=== PATIENT | female | born 1960 | race African-American/Black ===

== ENCOUNTER 2017-10-13 07:20 | Emergency (ER) | payer BC | END 2017-10-13 08:05 | disposition home or self-care (01) | LOC: SCSER 07:20 | DX: S16.1XXA Strain of muscle, fascia and tendon at neck level, initial encounter (principal); R51 Headache; Z85.3 Personal history of malignant neoplasm of breast; Z79.82 Long term (current) use of aspirin; X58.XXXA Exposure to other specified factors, initial encounter | CPT/HCPCS: 99283 ==

== ENCOUNTER 2017-11-07 08:48 | Outpatient (CLI) | payer BC | END 2017-11-07 08:49 | disposition home or self-care (01) | LOC: BICMAMMO 08:48 | PROVIDERS: ATTEND Specialist | DX: Z08 Encounter for follow-up examination after completed treatment for malignant neoplasm (principal); Z85.3 Personal history of malignant neoplasm of breast; Z98.890 Other specified postprocedural states | CPT/HCPCS: 77066; G0279 ==

== ENCOUNTER 2017-11-11 11:21 | Emergency (ER) | payer BC ==
[2017-11-11 11:56] LABS: #Basophils 0.1 thou/uL (0.0-0.2); #Eosinphils 0.1 thou/uL (0.0-0.7); #Lymphocytes 1.4 thou/uL (1.20-3.40); #Monocytes 0.3 thou/uL (0.11-0.59); #Neutrophils 2.9 thou/uL (1.40-6.50); %Basophils 2.1 % (0.0-1.0); %Eosinophils 1.3 % (0.0-10.0); %Lymphocytes 29.3 % (21.0-51.0); %Monocytes 6.7 % (0.0-10.0); %Neutrophils 60.7 % (42.0-75.0); Hemoglobin 12.8 g/dL (12.0-16.0); Mean Corpuscular HGB CONC 33.9 g/dL (32.0-36.0); Mean Corpuscular Hemoglobin 28.2 pg (27.0-31.0); Mean Platelet Volume 8.3 fL (7.4-10.4); Platelet Count 145 thou/uL (130-400); RBC Distribution Width 12.8 % (11.5-14.5); Red Blood Cell (RBC) Count 4.55 mill/uL (4.20-5.40); White Blood Cell (WBC) Count 4.8 thou/uL (4.8-10.8)
[2017-11-11 12:15] LABS: ALT (SGPT) 23 U/L (8-55); AST (SGOT) 39 U/L (5-34); Alkaline Phosphatase 137 U/L (40-150); Anion Gap 15 mmol/L (10-20); BUN (Urea Nitrogen) 11 mg/dL (9.8-20.1); Bilirubin, Total 0.5 mg/dL (0.2-1.2); CK (CPK) 253 U/L (29-168); Calc. Creatinine Clearance 0 mL/min (70-130); Calcium 9.5 mg/dL (7.8-10.44); Carbon Dioxide 23 mmol/L (22-29); Chloride 107 mmol/L (98-107); Estimated GFR-MDRD 84; Globulin 3.9 g/dL (2.4-3.5); Glucose 89 mg/dL (70-105); Lipase 17 U/L (8-78); Potassium 3.7 mmol/L (3.5-5.1); Protein, Total 7.9 g/dL (6.0-8.3); Sodium 141 mmol/L (136-145); Troponin I Less than 0.010 ng/mL (< 0.028)
--- NOTE | 2017-11-11 13:42 | RAD ---
PORTABLE CHEST: Date: 11/11/17 HISTORY: Chest pain. Cough. Comparison made to chest film dated 07/01/13. FINDINGS: Lungs are well aerated. Interstitial markings in the left perihilar region appear stable. No focal in filtrate or effusion. Heart and mediastinum unremarkable. Numerous surgical clips in the left axilla and small left breast indicate a prior lumpectomy-type procedure. Osseous structures appear unremarka ble as visualized. IMPRESSION: No acute infiltrate or significant interval change. POS: [facility]
[2017-11-11 15:25] LABS: CKMB 0.9 ng/mL (0-6.6); Troponin I Less than 0.010 ng/mL (< 0.028)
== END 2017-11-11 15:51 | disposition home or self-care (01) ==
LOC: SCSER 11:21
DX: R07.89 Other chest pain (principal); Z79.82 Long term (current) use of aspirin
CPT/HCPCS: 71045; 80053; 82553; 83690; 84484; 85025; 93005

== ENCOUNTER 2017-11-12 10:39 | Outpatient (CLI) | payer BC | END 2017-11-12 10:40 | disposition home or self-care (01) | LOC: BICMAMMO 10:39 | PROVIDERS: ATTEND Specialist | DX: Z08 Encounter for follow-up examination after completed treatment for malignant neoplasm (principal); Z85.3 Personal history of malignant neoplasm of breast ==

== ENCOUNTER 2017-12-05 07:56 | Outpatient (CLI) | payer BC | END 2017-12-05 07:57 | disposition home or self-care (01) | LOC: BICMRI 07:56 | PROVIDERS: ATTEND Specialist | DX: C50.912 Malignant neoplasm of unspecified site of left female breast (principal); R93.8 Abnormal findings on diagnostic imaging of other specified body structures | CPT/HCPCS: C8908 ==

== ENCOUNTER 2017-12-06 09:30 | Outpatient (CLI) | payer BC ==
--- NOTE | 2017-12-06 15:42 | PET ---
PET WITH CT SKULL TO MID THIGH: CLINICAL HISTORY: Left breast cancer. COMPARISON: Reference is made to a prior PET CT exam, 06/24/13. RADIOPHARMACEUTICAL: 11.7 mCi fluorine 18-FDG IV. FINDINGS: There is appropriate biodistribution of radiotracer activity. FINDINGS: There is a spiculated, partially calcified hypermetabolic left breast mass with SUV maximum of approx imately 3.7. There are diffuse lytic hypermetabolic osseous metastases which span from the level of the skull base , throughout the spine, involving ribs bilaterally, prominent, lytic destructive involvement of the l eft scapula and subtle involvement of the right scapula regions, as well as involving the pelvic osse ous structures bilaterally including the bilateral iliac bones, sacrum, and the imaged, proximal left femur. There is marked osseous destruction of the lumbar spine with associated obliteration of vertebral can al contents, limited in assessment on the basis of this exam involving the L3 segment, with multiple additional anterior and posterior spinal column lytic destructive lesions. Hypermetabolic activity w ithin the vertebral canal not excluded with regard to potential spinal metastases. This may be furth er assessed with dedicated pre- and postcontrast spinal MR examinations. SUV of osseous metastases m easures up to 12, which is located at the L5 segment. IMPRESSION: 1. Hypermetabolic spiculated partially calcified left breast mass corresponding to recent MRI breast findings which is consistent with malignancy. 2. Diffuse, multifocal lytic metastatic lesions throughout the osseous structures of the visualized skeletal system. Of note, there are lytic destructive lesions which do involve portions of the verte bral canal with prominent compromise of vertebral canal contents, notably within the lumbar spine, in completely assessed on the basis of this exam. Therefore, clinical correlation for detection of neur ologic compromise should be performed. Given the involvement of the imaged skull base osseous struct ures, the possibility of intracranial metastatic disease is not excluded. These findings may be furt her evaluated with pre- and postcontrast MR imaging of the brain and spine as clinically warranted. The findings were telephoned to patient's physician, Dr. Teresita Hawley, at the time of interpretation, 1420 hours 12/06/17. CODE CR POS: [facility]
== END 2017-12-06 09:31 | disposition home or self-care (01) ==
LOC: PET 09:30
PROVIDERS: ATTEND Specialist
DX: C50.912 Malignant neoplasm of unspecified site of left female breast (principal); C79.51 Secondary malignant neoplasm of bone
CPT/HCPCS: 78815; 80048; 85025; A9552

== ENCOUNTER 2017-12-06 11:13 | Outpatient (CLI) | payer BC ==
[2017-12-06 12:21] LABS: #Eosinphils 0.1 thou/uL (0.0-0.7); #Lymphocytes 1.5 thou/uL (1.20-3.40); #Monocytes 0.3 thou/uL (0.11-0.59); #Neutrophils 3.2 thou/uL (1.40-6.50); %Basophils 0.2 % (0.0-1.0); %Eosinophils 1.4 % (0.0-10.0); %Lymphocytes 29.9 % (21.0-51.0); %Monocytes 5.5 % (0.0-10.0); Hemoglobin 12.9 g/dL (12.0-16.0); Mean Corpuscular HGB CONC 32.4 g/dL (32.0-36.0); Mean Corpuscular Hemoglobin 27.9 pg (27.0-31.0); Mean Platelet Volume 8.3 fL (7.4-10.4); Platelet Count 128 thou/uL (130-400); RBC Distribution Width 13.1 % (11.5-14.5); Red Blood Cell (RBC) Count 4.61 mill/uL (4.20-5.40); White Blood Cell (WBC) Count 5.1 thou/uL (4.8-10.8)
[2017-12-06 12:44] LABS: Anion Gap 11 mmol/L (10-20); BUN (Urea Nitrogen) 11 mg/dL (9.8-20.1); Calc. Creatinine Clearance 0 mL/min (70-130); Calcium 9.8 mg/dL (7.8-10.44); Carbon Dioxide 28 mmol/L (22-29); Chloride 105 mmol/L (98-107); Estimated GFR-MDRD 87; Glucose 90 mg/dL (70-105); Potassium 3.4 mmol/L (3.5-5.1); Sodium 141 mmol/L (136-145)
== END 2017-12-06 11:14 | disposition home or self-care (01) ==
LOC: LABBT 11:13
PROVIDERS: ATTEND Specialist
DX: Z01.812 Encounter for preprocedural laboratory examination (principal); C50.912 Malignant neoplasm of unspecified site of left female breast; Z17.1 Estrogen receptor negative status [ER-]
CPT/HCPCS: 80048; 85025

== ENCOUNTER 2017-12-12 08:57 | Outpatient (CLI) | payer BC ==
--- NOTE | 2017-12-12 12:23 | MRI ---
MRI BRAIN WITH AND WITHOUT CONTRAST: HISTORY: Malignant neoplasm of the breast. Evaluate for metastases. COMPARISON: None. CORRELATION: PET imaging from 12/06/2017. FINDINGS: No hemorrhage on the axial gradient echo sequence. No brain parenchymal mass, mass effect, or midline shift. Brain volume is age appropriate. Cortical silva white matter differentiation is preserved. The ventricles and sulci are patent and symmetric. Minimal white matter hyperintensities due to chronic small vessel ischemic change. Central arterial flow voids are maintained. Absent restricted diffusion. Adequate aeration of the sinuses and mastoid air cells. There is no pathologic enhancement of the brain parenchyma. Normal midline brain parenchymal structures. There is multifocal enhancement involving the calvarium. The largest calvarial lesion is in the left occipital calvarium and measures 2 x 0.7 cm. IMPRESSION: 1. No pathologic enhancement in the brain parenchyma. Absent restricted diffusion. No acute infarc t. 2. Multifocal enhancing masses in the calvarium, compatible with osseous metastases. The largest fo cus is in the left occipital calvarium. POS: [facility]
--- NOTE | 2017-12-12 12:55 | MRI ---
THORACIC SPINE MRI WITH AND WITHOUT CONTRAST: HISTORY: Malignant neoplasm of the breast with associated osseous metastases. COMPARISON: None. TECHNIQUE: Thoracic spine MRI is performed with and without intravenous Gadolinium administration. Multisequent ial, multiplanar imaging is performed. FINDINGS: There is T1 marrow signal hypointensity with associated T2 and STIR hyperintensity involving the T1, T5, T6, T7, T8, T9, T10, T11, and T12 vertebral bodies. There is associated abnormal signal intensit y involving multiple spinous processes, from T3 through T8. Post contrast images demonstrate heterog eneous enhancement. Multifocal osseous metastases is favored. There is abnormal enhancement involvi ng a left pedicle, at T11. No abnormal enhancement or T2 hyperintensity in the thoracic cord. Dependent atelectatic change in the lung parenchyma is noted. The visualized solid organs are grossl y unremarkable. The conus medullaris terminates beyond the T12 level. There is severe loss of vertebral body height with retropulsion at T5. T1-T2: No significant central canal stenosis or foraminal narrowing. T2-T3: No significant central canal stenosis or foraminal narrowing. T3-T4: No significant central canal stenosis or foraminal narrowing. T5 VERTEBRAL BODY: There is moderate central canal stenosis secondary to retropulsion. T5-T6: No significant central canal stenosis or foraminal narrowing. T6-T7: Minimal right paracentral disk bulge. No significant central canal stenosis or foraminal jordan rowing. T7 VERTEBRAL BODY: Minimal retropulsion. No significant central canal stenosis. T7-T8/T8-T9/T9-T10: No significant central canal stenosis or foraminal narrowing. T10-T11: Minimal left and right paracentral disk bulges. No significant central canal stenosis or f oraminal narrowing. T11-T12: No significant central canal stenosis or foraminal narrowing. There is significant posterior element metastatic disease involving the left lamina and spinous proce ss at T4, the spinous process and posterior elements at T6, the posterior elements at T8, and the lef t lamina at T9. IMPRESSION: 1. Multifocal osseous metastases. There is a pathologic fracture with resultant vertebral plana at T5. There is deformity of the thoracic cord at this level with moderate central canal stenosis. No T2 hyperintensity of the cord. 2. No pathologic enhancement of the thoracic cord. No magnetic resonance evidence of an intramedull alisa mass. POS: [facility]
--- NOTE | 2017-12-12 13:48 | MRI ---
LUMBAR SPINE MRI WITH AND WITHOUT CONTRAST: LIMITED SACRAL MRI: HISTORY: Metastatic malignant breast cancer. COMPARISON: None. TECHNIQUE: An MRI of the lumbar spine is performed without intravenous Gadolinium administration. Multisequenti al, multiplanar imaging is performed. FINDINGS: There is heterogeneous T1 marrow signal hypointensity throughout the lumbar spine and sacrum. Multif ocal osseous metastasis is favored, given that there is associated T2 and STIR hyperintensity. Abnor mal signal intensity involves the posterior elements, including the lamina and the spinous processes at multiple levels. There is a pathologic fracture at L3 with moderate loss of vertebral body height and retropulsion. There is no abnormal enhancement of the psoas muscles. There is symmetric signal intensity of the kidneys. The conus medullaris terminates at the mid L1 level. Post contrast images do not demonstrate any intradural, extramedullary, or intramedullary metastatic focus. T12-L1: No high grade central canal stenosis or high grade foraminal narrowing. L1-L2: No significant central canal stenosis or foraminal narrowing. L2-L3: No high grade central canal stenosis. The right neural foramen is patent. Moderate left for aminal narrowing due to bony hypertrophy of the left posterior elements, secondary to osseous metasta ses. Additionally, there is metastatic involvement of the left L3 lamina, which compounds the overal l degree of left foraminal narrowing at L2-L3. L3 VERTEBRAL BODY: Pathologic fracture secondary to extensive metastases. There is retropulsion. T here is moderate central canal stenosis due to retropulsion, as well as marrow expansion, secondary t o infiltrating malignancy of the L3 vertebral body and the associated posterior elements. L3-L4: Mild loss of disk space height. Mild central canal stenosis. Moderate bilateral foraminal n arrowing. L4-L5: Adequate disk hydration. No significant central canal stenosis. The foramina are mildly jordan rowed. L5-S1: No high grade central canal stenosis. The neural foramina are moderately narrowed. SACRAL MRI: There is extensive T2 hyperintensity with associated enhancement involving the entire sa abbi and visualized bony pelvis. The sacral foramina appear to be patent. There is mild narrowing o f the left S2 neural foramen secondary to S2 vertebral body metastases. IMPRESSION: 1. Multiple osseous metastases, as above. 2. Pathologic fracture at L3. There is significant (moderate) stenosis of the central spinal canal at L3 secondary to metastases and compression fracture. 3. There is significant left foraminal narrowing at L2-L3 due to metastatic disease. POS: [facility]
== END 2017-12-12 08:58 | disposition home or self-care (01) ==
LOC: MRI 08:57
PROVIDERS: ATTEND Internal Medicine Hematology & Oncology
DX: C50.112 Malignant neoplasm of central portion of left female breast (principal); C79.51 Secondary malignant neoplasm of bone; M84.58XA Pathological fracture in neoplastic disease, other specified site, initial encounter for fracture; M48.061 Spinal stenosis, lumbar region without neurogenic claudication; M99.83 Other biomechanical lesions of lumbar region; M48.04 Spinal stenosis, thoracic region
CPT/HCPCS: 70553; 72157; 72158

== ENCOUNTER 2017-12-17 12:45 | Day surgery (SDC) | payer BC ==
[2017-12-14 15:39] VITALS: BMI 25.3
[~2017-12-17 12:45] MED LIST: Dexamethasone 20 MG/5 ML VIAL ONE; Ketorolac Tromethamine 30 MG/ML VIAL ONE; Lidocaine 1% PF 5 ML VIAL ONE; Ondansetron HCl/PF 4 MG/2 ML Vial ONE; PROPOFOL 200 MG/20 ML VIAL ONE; ePHEDrine/0.9% NaCl/PF SYRINGE 50 mg/10 ml ONE
[2017-12-17] MEDS ORDERED: CEFAZOLIN/Water 2 GM/20 ML SYRINGE ONE (12:49)
[2017-12-17] MEDS ORDERED: Ketorolac Tromethamine 30 MG/ML VIAL ONE (12:50)
[2017-12-17] MEDS ORDERED: Midazolam HCl 2 mg/2 ml Vial ONE (13:43)
[2017-12-17] MEDS ORDERED: Fentanyl 100 MCG/2 ML VIAL ONE (13:43)
[2017-12-17] MEDS ORDERED: Lidocaine 2% 10 ML INJ ONE (13:55)
[2017-12-17] MEDS ORDERED: Bupivacaine/Epinephrine 0.25% 30 ML VIAL ONE (13:55)
[2017-12-17] MEDS ORDERED: Lidocaine 1% w/Epinephrine 1:100K 30 ML VIAL ONE (13:55)
--- NOTE | 2017-12-17 18:02 | RAD ---
RADIOGRAPH CHEST 1 VIEW: Date: 12/17/17 Time: 1458 hours HISTORY: Status post MediPort placement in 57-year-old female with metastatic breast cancer. COMPARISON: 11/11/17. FINDINGS: There is a new right-sided implantable vascular access port, with its catheter overlying the right cl avicular head, with distal tip overlying the right mediastinum, at the expected location of the mid S VC. There is no pneumothorax. Visualized lung garza are clear. Multiple left axillary surgical clips . Lateral costophrenic angles are sharp. Absence of left breast shadow. IMPRESSION: 1. Interval placement of right-sided implantable vascular access port, without pneumothorax. 2. Status post left mastectomy and left axillary lymph node dissection. DARIUS [] POS: [facility]
--- NOTE | 2017-12-18 09:57 | OP ---
DATE OF PROCEDURE: 12/17/2017 PREOPERATIVE DIAGNOSES: Metastatic breast cancer and recurrent left breast cancer. POSTOPERATIVE DIAGNOSES: Metastatic breast cancer and recurrent left breast cancer. OPERATION PERFORMED: Placement of right subclavian low-profile power compatible MediPort. SURGEON: Kev Yee M.D. ANESTHESIA: Total intravenous anesthesia with local using 0.25% Marcaine with epinephrine. INDICATIONS: The patient is a 57-year-old black female. She has been found to have metastatic breas t cancer involving her spine as well as a recurrent cancer within her left breast. [facility] for MediPort placement for chemotherapy administration. She has had a prior right subclavian MediPort that had been placed and removed. DESCRIPTION OF OPERATION: Informed consent was obtained. The patient was taken to the operating ada m where total intravenous anesthesia was obtained with the patient in supine position. Right pericla vicular area was prepped with ChloraPrep and draped in sterile fashion. Local anesthetic was infiltr ated and a large gauge needle was passed under the clavicle in the subclavian vein. Guidewire was pa ssed through the needle and fluoroscopically confirmed to enter the superior vena cava. Additional l ocal anesthetic was infiltrated and transverse incision was created based on needle insertion site. A subcutaneous pocket was dissected inferiorly. Introducer dilator was passed over the guidewire und er fluoroscopic guidance. The guidewire and dilator were removed, and the catheter was passed throug h the introducer. The tip of the catheter was positioned at the atriocaval junction and the catheter was trimmed to the appropriate length and secured to the locking hub of the MediPort. The port was then placed in the subcutaneous pocket where it was secured to the pectoral fascia with 2 interrupted sutures of 3-0 Prolene. The incision was then closed in layers with 3-0 and 4-0 Monocryl. Addition al local anesthetic was infiltrated. The port was cannulated with a Horan needle and it aspirated bl ood freely and was flushed with heparinized saline. Dermabond was placed externally on the skin inci guero. There were no complications. Blood loss was negligible. The patient tolerated the procedure well and was taken to recovery room in stable condition. FINDINGS: There was some minimal appropriate scar tissue from her prior MediPort. The vascular acce ss in the port placement was performed uneventfully. She still had essentially normal anatomy. Ther e were no complications and essentially no blood loss during the operation. She tolerated the proced ure well and was taken to recovery room in stable condition. Fluoroscopy was utilized throughout the procedure.
== END 2017-12-17 16:37 | disposition home or self-care (01) ==
LOC: SDC 12:45
PROVIDERS: ATTEND Specialist
PROC: 0JH63WZ Insertion of Totally Implantable Vascular Access Device into Chest Subcutaneous Tissue and Fascia, Percutaneous Approach (ICD-10-PCS; principal; 2017-12-17)
DX: C50.912 Malignant neoplasm of unspecified site of left female breast (principal); C79.51 Secondary malignant neoplasm of bone; Z17.1 Estrogen receptor negative status [ER-]; Z79.82 Long term (current) use of aspirin
CPT/HCPCS: 71045; 77014; 77290; 77306; 77332; C1788; J0131; J1100; J1642; J1885; J2001; J2250; J2405; J2704; J3010

== ENCOUNTER 2017-12-18 12:52 | Outpatient (CLI) | payer BC | END 2017-12-18 12:53 | disposition home or self-care (01) | LOC: ULT 12:52 | PROVIDERS: ATTEND Internal Medicine Hematology & Oncology | DX: C50.919 Malignant neoplasm of unspecified site of unspecified female breast (principal); I07.1 Rheumatic tricuspid insufficiency | CPT/HCPCS: 93306 ==

== ENCOUNTER 2018-03-21 09:19 | Outpatient (CLI) | payer BC ==
--- NOTE | 2018-03-21 13:51 | PET ---
PET WITH CT SKULL TO MID THIGH: Reference made to prior exam (PET CT) dated 12/06/17. CLINICAL HISTORY: Breast malignancy with bone metastasis. FINDINGS: The previous, numerous osseous hypermetabolic foci have resolved. Currently, no evidence of hypermeta bolic osseous metastatic disease is demonstrated. No new hypermetabolic mass of the neck, chest, abdomen, or pelvis. There are scattered nonspecific pulmonary parenchymal opacities, some of which demonstrate ground-gla ss appearance and others are linear in morphology. Slight component of pulmonary parenchymal nodulari ty is also present, which is below size threshold for PET resolution and is nonspecific. Numerous veronika stic lesions of the osseous structures by CT appearance are redemonstrated. Lipoma of the right glute us musculature is present. IMPRESSION: 1. Interval resolution of prior hypermetabolic activity with regard to patient's previously diagnose d osseous metastatic disease. The numerous CT evidence blastic lesions remain, although are not hyper metabolic by PET imaging. 2. Nonspecific pulmonary parenchymal opacities are present, some of which demonstrate component of n odularity, below size threshold for PET resolution and incompletely assessed on the basis of attenuat ion correction, nondiagnostic CT imaging. Recommend follow-up contrast enhanced CT thorax for further evaluation. 3. Interval resolution of hypermetabolic activity at site of previous left breast mass. POS: [facility]
== END 2018-03-21 09:20 | disposition home or self-care (01) ==
LOC: PET 09:19
PROVIDERS: ATTEND Internal Medicine Hematology & Oncology
DX: C50.919 Malignant neoplasm of unspecified site of unspecified female breast (principal); C79.51 Secondary malignant neoplasm of bone; N63.20 Unspecified lump in the left breast, unspecified quadrant; R91.8 Other nonspecific abnormal finding of lung field
CPT/HCPCS: 78815; A9552

== ENCOUNTER 2018-06-04 14:31 | Outpatient (CLI) | payer BC | END 2018-06-04 14:32 | disposition home or self-care (01) | LOC: ULT 14:31 | PROVIDERS: ATTEND Internal Medicine Hematology & Oncology | DX: C50.112 Malignant neoplasm of central portion of left female breast (principal); I08.1 Rheumatic disorders of both mitral and tricuspid valves; Z79.899 Other long term (current) drug therapy | CPT/HCPCS: 93306 ==

== ENCOUNTER 2018-07-05 08:39 | Outpatient (CLI) | payer BC ==
--- NOTE | 2018-07-05 15:26 | PET ---
PET WITH CT SKULL TO MID THIGH: COMPARISON: 03/21/18. CLINICAL INDICATION: Breast cancer with bone metastasis. RADIOPHARMACEUTICAL: 10.8 mCi F18-FDG intermixed with 10 mL 0.9% sodium chloride. There is appropriate biodistribution of radiotracer activity. FINDINGS: Since the prior exam, there has been interval development of several hypermetabolic foci involving th e osseous structures of the thoracolumbar spine. Maximum SUV is approximately 3.5, which is located a t the L5 vertebral body. Remote compression deformity of L3 is redemonstrated. There are newly develo ped linear oriented parenchymal densities of the right paramediastinal pulmonary parenchyma which fav or sequelae from radiation pneumonitis. These findings are not hypermetabolic. No new hypermetabolic mass or adenopathy involving the soft tissues of the neck, chest, abdomen, or p alexander. IMPRESSION: Interval development of multiple hypermetabolic foci involving the thoracolumbar spine indicative of interval redevelopment of osseous metastatic disease. POS: [facility]
== END 2018-07-05 08:40 | disposition home or self-care (01) ==
LOC: PET 08:39
PROVIDERS: ATTEND Internal Medicine Hematology & Oncology
DX: C50.919 Malignant neoplasm of unspecified site of unspecified female breast (principal); C79.51 Secondary malignant neoplasm of bone
CPT/HCPCS: 78815; A9552

== ENCOUNTER 2018-08-15 09:13 | Outpatient (CLI) | payer BC ==
--- NOTE | 2018-08-15 12:23 | PET ---
PET WITH CT SKULL TO MID THIGH: CLINICAL INDICATION: Breast cancer with bone metastasis. RADIOPHARMACEUTICAL: 12.1 mCi F18-FDG IV. There is appropriate biodistribution of the radiotracer activity. FINDINGS: Comparing to the prior exam (07/05/[address]), there is redemonstration of multifocal hypermetabolic activity involving the osseous structures of the thoracolumbar spine. The prior maximum SUV, localizi ng to the L5 vertebral body on the prior exam (previously 3.5) is now demonstrated at 5.2, which is a n interval increase. Additional osseous lesions have also increased in SUV since the prior exam. Rede monstration of L3 level compression deformity. Since the prior exam, there has been development of a punctate focus of hypermetabolic activity with SUV of 3 localizing to the posterior aspect of the lef t sacroiliac joint, likely representing a small, interval metastatic lesion. There is also a subtle a kwan of increased metabolic activity within the posterior right sacrum, SUV maximum of 3.3, which may also relate to a small interval osseous metastatic lesion. Redemonstration of bilateral paramediastinal pulmonary parenchymal opacities favoring sequelae from r adiation pneumonitis. Lipomatous lesion of the right hemipelvis is again seen. IMPRESSION: 1. Interval increase in intensity with regard to SUV of multifocal thoracolumbar spine osseous lesio ns. 2. Interval development of small foci of hypermetabolic activity involving the region of the sacrum bilaterally, indicative of interval small osseous metastatic lesions, in light of concomitant finding s. Continued imaging follow-up in this regard may prove useful. POS: [facility]
== END 2018-08-15 09:14 | disposition home or self-care (01) ==
LOC: PET 09:13
PROVIDERS: ATTEND Internal Medicine Hematology & Oncology
DX: C50.919 Malignant neoplasm of unspecified site of unspecified female breast (principal); C79.51 Secondary malignant neoplasm of bone; R93.7 Abnormal findings on diagnostic imaging of other parts of musculoskeletal system
CPT/HCPCS: 78815; A9552

== ENCOUNTER 2018-10-22 11:23 | Outpatient (CLI) | payer BC ==
--- NOTE | 2018-10-22 14:08 | PET ---
PET SCAN WITH CT ATTENUATION CORRECTION: HISTORY: Breast cancer with osseous metastasis. TECHNIQUE: Patient was administered 13 mCi of F18-FDG intravenously. Images obtained from skull base to proximal thighs. COMPARISON: 08/15/18 and 07/05/18. FINDINGS: HEAD/NECK: No abnormal FDG localization. CHEST: No abnormal FDG localization. CT used for attenuation correction demonstrates dependent atelectasis, as well as scar or subsegmental atelectasis in the middle lobe. ABDOMEN/PELVIS: No abnormal FDG localization with regards to the solid organs. CT used for attenuation correction dem onstrates a large, heterogeneous uterus compatible with uterine leiomyomas. There are associated punc jones calcifications. OSSEOUS STRUCTURES: The previously noted hypermetabolic activity involving the thoracic and lumbar spine is no longer mario dent. There are sclerotic foci suggesting treated metastasis. There is a stable compression fracture at the L3 level. No abnormal FDG localization in the sacrum, bony pelvis, or ribs. IMPRESSION: Findings compatible with treated metastasis. Previously noted FDG avidity in the thoracolumbar spine and sacrum have resolved. Areas of sclerosis compatible with treated metastasis. Stable compression f racture at L3. POS: [facility]
== END 2018-10-22 11:24 | disposition home or self-care (01) ==
LOC: PET 11:23
PROVIDERS: ATTEND Internal Medicine Hematology & Oncology
DX: C50.919 Malignant neoplasm of unspecified site of unspecified female breast (principal); C79.51 Secondary malignant neoplasm of bone; M48.56XA Collapsed vertebra, not elsewhere classified, lumbar region, initial encounter for fracture; G95.89 Other specified diseases of spinal cord
CPT/HCPCS: 78815; A9552

== ENCOUNTER 2018-10-24 13:28 | Outpatient (CLI) | payer BC | END 2018-10-24 13:29 | disposition home or self-care (01) | LOC: ULT 13:28 | PROVIDERS: ATTEND Internal Medicine Hematology & Oncology | DX: Z51.11 Encounter for antineoplastic chemotherapy (principal); C50.112 Malignant neoplasm of central portion of left female breast; I08.1 Rheumatic disorders of both mitral and tricuspid valves; Z79.899 Other long term (current) drug therapy | CPT/HCPCS: 93306 ==

== ENCOUNTER 2019-01-31 07:55 | Outpatient (CLI) | payer BC ==
--- NOTE | 2019-01-31 10:02 | PET ---
EXAM: PET CT skull to mid thigh COMPARISON: 10/22/2018 HISTORY: Malignant neoplasm of the left female breast with secondary malignant neoplasm of the bone TECHNIQUE: A PET/CT was performed from the skull to the mid thigh after administration of 11.3 millic uries of F-18 FDG. Evaluation was performed on a [employer] workstation. FINDINGS: NECK: No areas of hypermetabolic activity CHEST: No areas of hypermetabolic activity ABDOMEN/PELVIS: No areas of hypermetabolic activity SKELETON: There are stable sclerotic lesions in the spine which do not demonstrate increased hypermet abolic activity and likely represent treated metastases. There are nonfocal areas of metabolic activity within the lower thoracic spine and in the L4 vertebral body with max SUV value of 2.6. Thes e areas do not have CT correlates. The rest of the bones are unremarkable. CT images used for attenuation correction show a right sided Mediport with its tip in the superior ve na cava. There is an enlarged uterus which may represent uterine fibroids. There is a stable compression fracture of L3. IMPRESSION: Nonspecific nonfocal hypermetabolic activity in the lower thoracic spine and in the L4 ve rtebral body. This could represent marrow reactivation but osseous metastases in these locations are also a possibility.
== END 2019-01-31 07:56 | disposition home or self-care (01) ==
LOC: PET 07:55
PROVIDERS: ATTEND Internal Medicine Hematology & Oncology
DX: C50.912 Malignant neoplasm of unspecified site of left female breast (principal); C79.51 Secondary malignant neoplasm of bone
CPT/HCPCS: 78815; A9552

== ENCOUNTER 2019-02-27 12:26 | Outpatient (CLI) | payer BC | END 2019-02-27 12:27 | disposition home or self-care (01) | LOC: ULT 12:26 | PROVIDERS: ATTEND Internal Medicine Hematology & Oncology | DX: Z51.11 Encounter for antineoplastic chemotherapy (principal); C50.112 Malignant neoplasm of central portion of left female breast; C79.51 Secondary malignant neoplasm of bone; I08.8 Other rheumatic multiple valve diseases; Z79.899 Other long term (current) drug therapy | CPT/HCPCS: 93306 ==

== ENCOUNTER 2019-05-08 08:18 | Outpatient (CLI) | payer BC ==
--- NOTE | 2019-05-08 10:19 | PET ---
PET CT SKULL TO MID THIGH: COMPARISON: 01/31/2019 PET/CT. HISTORY: Left breast cancer. TECHNIQUE: A PET/CT was performed from the skull to the mid thigh after administration of 11.1 millicuries of F- 18 FDG. Evaluation was performed on a [employer] workstation. FINDINGS: NECK: No areas of hypermetabolic activity. CHEST: No areas of hypermetabolic activity. ABDOMEN/PELVIS: No areas of hypermetabolic activity. SKELETON: New small focus of hypermetabolic activity of L1 vertebral body is present, and additionally, hyperme tabolic foci of the posterior, left aspect of the sacrum. These findings demonstrate SUV of 4.5, and 3, respectively. IMPRESSION: New hypermetabolic foci of the skeletal system, involving L1 vertebral body, as well as within the po sterior and left aspect of the sacrum. These findings are concerning for interval development of early, osseous metastases. This should be further interrogated with whole body bone scan. Transcribed Date/Time: 05/08/2019 10:34 AM
--- NOTE | 2019-05-08 12:02 | CT ---
CT Brain W Con: 05/08/2019 12:00 AM CLINICAL HISTORY: Breast cancer. COMPARISON: None. FINDINGS: Hemorrhage: None. Ventricular system: Normal in size and morphology for the patient's age. Cerebral parenchyma: Normal Midline shift: None. Mass: No mass effect. Calvarium: Normal. Visualized Paranasal sinuses: Mild mucosal thickening. IMPRESSION: No CT evidence of intracranial metastatic disease.
== END 2019-05-08 08:19 | disposition home or self-care (01) ==
LOC: PET 08:18
PROVIDERS: ATTEND Internal Medicine Hematology & Oncology
DX: C79.51 Secondary malignant neoplasm of bone (principal); C50.912 Malignant neoplasm of unspecified site of left female breast
CPT/HCPCS: 70470; 78815; A9552

== ENCOUNTER 2019-07-09 14:34 | Outpatient (CLI) | payer BC | END 2019-07-09 14:35 | disposition home or self-care (01) | LOC: ULT 14:34 | PROVIDERS: ATTEND Internal Medicine Hematology & Oncology | DX: Z51.11 Encounter for antineoplastic chemotherapy (principal); C50.112 Malignant neoplasm of central portion of left female breast; C79.51 Secondary malignant neoplasm of bone; I07.1 Rheumatic tricuspid insufficiency | CPT/HCPCS: 93306 ==

== ENCOUNTER 2019-07-28 09:52 | Outpatient (CLI) | payer BC ==
--- NOTE | 2019-07-28 14:38 | NM ---
WHOLE BODY BONE SCAN: HISTORY: Malignant neoplasm of central portion of left female breast. Second a malignant neoplasm of bone RADIOPHARMACEUTICAL: 30 mCi technetium 99m-MDP injected intravenously COMPARISON: None FINDINGS: There scattered degenerative activity in the appendicular skeleton. There are foci of increased uptake in the thoracolumbar spine, sacrum and the right iliac crest, cons istent with osseous metastatic disease. Tracer excretion through the kidneys is within normal limits. IMPRESSION: Findings are consistent with osseous metastatic disease.
== END 2019-07-28 09:53 | disposition home or self-care (01) ==
LOC: NM 09:52
PROVIDERS: ATTEND Internal Medicine Hematology & Oncology
DX: C50.112 Malignant neoplasm of central portion of left female breast (principal); C79.51 Secondary malignant neoplasm of bone
CPT/HCPCS: 78306; A9503

== ENCOUNTER 2019-10-23 10:25 | Outpatient (CLI) | payer BC ==
--- NOTE | 2019-10-23 14:06 | NM ---
NUCLEAR MEDICINE BONE SCAN WHOLE BODY: (Skeletal scintigraphy) DATE: 10/23/2019 HISTORY: 59-year-old female with "malignant neoplasm of central portion of left female breast" secondary malig nant neoplasm of bone. COMPARISON: 07/28/2019. TECHNIQUE: IV injection of technetium 99m-MDP: 30.2 mCi 3 hour delayed whole body skeletal scintigraphy in anterior and posterior views. FINDINGS: Focal levoscoliosis at mid lumbar spine. Heterogeneously increased uptake at several levels in the john mbar spine, including mid, upper, and lower levels. Heterogeneously significantly increased uptake at the left sacral ala. Scattered small regions of increased uptake at the mid and lower thoracic spine. Other than osteoarthrosis symmetrically in the major joints, no foci of asymmetrically focally increa sed uptake that are suspicious for long bone metastases, are visualized in the appendicular skeleton.. No such uptake in the ribs. No interval change overall. IMPRESSION: 1) evidence for osseous metastases in the axial skeleton: Thoracic and lumbar spine, and left sacrum 2) no significant interval change since 07/28/2019
== END 2019-10-23 10:26 | disposition home or self-care (01) ==
LOC: NM 10:25
PROVIDERS: ATTEND Internal Medicine Hematology & Oncology
DX: C50.112 Malignant neoplasm of central portion of left female breast (principal); C79.51 Secondary malignant neoplasm of bone
CPT/HCPCS: 78306; A9503

== ENCOUNTER 2019-10-27 14:43 | Outpatient (CLI) | payer BC | END 2019-10-27 14:44 | disposition home or self-care (01) | LOC: ULT 14:43 | PROVIDERS: ATTEND Internal Medicine Hematology & Oncology | DX: Z51.11 Encounter for antineoplastic chemotherapy (principal); C50.112 Malignant neoplasm of central portion of left female breast; C79.51 Secondary malignant neoplasm of bone; I08.1 Rheumatic disorders of both mitral and tricuspid valves; Z79.899 Other long term (current) drug therapy | CPT/HCPCS: 93306 ==

== ENCOUNTER 2020-02-04 08:59 | Outpatient (CLI) | payer BC ==
--- NOTE | 2020-02-04 10:49 | MRI ---
THORACIC SPINE MRI WITH AND WITHOUT CONTRAST: COMPARISON: 12/12/2017. CORRELATION: Chest, abdomen, and pelvic CT 01/28/2020. HISTORY: Metastatic breast cancer. Severe canal compromise noted on recent CT. FINDINGS: There is abnormal T1 marrow signal intensity at T5, T7, T8, T9, T11, T12 and L1. There is vertebrae p maryjane at T5. There is extensive osseous metastases involving the majority the T11 vertebral body extending into the left pedicle and left posterior elements. There is bony remodeling and convexity i nvolving the T11 vertebral body with extension into the epidural space. There is bony hypertrophy involving the left facet at T11. L1 will be dictated in the lumbar spine radiograph MRI report. There appears to be sclerosis secondary to a previously treated metastatic deposit at T5, T7 and T10 (as demonstrated on CT 01/28/2020). There may be a new or residual component of metastases at T7 and T12. There is appropriate signal intensity of the mediastinum, lung parenchyma and visualized solid organs Conus medullaris terminates at the mid L1 level. The thoracic cord has a overall normal size and signal intensity. No cord expansion, cord malacia or T2 hyperintensity in the thoracic cord. Postcontrast images do not demonstrate any abnormal enhancement within the thoracic cord. No intramedullary lesion. T1-T2 through T4-T5: No significant central canal stenosis. T5 vertebral body: Mild central canal stenosis due to retropulsion secondary to vertebrae plana. T11 vertebral body: There is moderate to severe central canal stenosis secondary to osseous metastase s involving the T11 vertebral body with epidural extension as well as involvement of the left pedicle and facet. The right neural foramen is patent. There is severe left foraminal narrowing at T1 0-T11 and T11-T12 secondary to metastases with resultant bony hypertrophy of the left facet. IMPRESSION: 1. Previously treated T5 metastatic lesion with sclerosis and vertebrae plana. 2. Metastases involving the T7, T9, T11, T12 and L1 vertebral bodies. Lesion T7, T9 appear to been pr eviously treated. There appear to be new lesions at T11, possibly T12. Residual disease at T7 cannot be excluded. 3. There is moderate to severe central canal stenosis secondary to osseous metastases with resultant bony expansion at T11. There is associated severe left neural foraminal narrowing at T10-T11 and T11-T12. Results of the study conveyed to Dr. Hawley via [facility] 02/04/2020 at 10:43 AM. Code CR Transcribed Date/Time: 02/04/2020 11:28 AM
--- NOTE | 2020-02-04 11:20 | MRI ---
LUMBAR SPINE MRI WITH AND WITHOUT CONTRAST: HISTORY: Progression of osseous metastases, specifically at T11 where there is significant central canal steno sis. COMPARISON: 12/12/2017. CORRELATION: Chest abdomen pelvis CT 01/28/2020. FINDINGS: Abnormal T1 marrow signal intensity involving T11, T12, L1, L3, L5, S1 and S2 as well as the left shante ac wing. There is associated heterogeneous enhancement compatible with multifocal osseous metastases. The degree of metastatic involvement has significantly progressed in the lumbar spine. Th e degree of osseous involvement at T12 is new when compared to the previous exam. There is suggestion of treatment at T12 with possible minimal residual metastases. The degree of involvement a t L1 has markedly increased. Currently, the left half of the L1 vertebral body is involved as well as the left pedicle. There is involvement of the right aspect of the L3 vertebral body and right pedi rea. There is marked involvement of the left aspect of S1 and S2. There is narrowing and obliteration of the left neural foramen at S1 and S2 with presumed compression/compromise of the left S1 and S2 nerve roots. There is mild abnormal enhancement involving the presacral fat anterior to the S1 and S2 levels. There is abnormal enhancement involving the right and left pedicle at S1 and S2 . Postcontrast images do not demonstrate any abnormal enhancement within the thecal sac including the c auda equina and conus medullaris. There is appropriate signal intensity in the paraspinal muscles. Heterogeneous uterus is redemonstrated. The cauda equina and conus medullaris do not demonstrate any clumping or thickening. No evidence of d rop metastases. L1-L2: No high-grade central canal stenosis. L2-L3: Adequate disc hydration. Broad-based disc bulge with at least mild central canal stenosis. Mil d right and left neural foraminal narrowing. L3-L4: Adequate disc hydration. Broad-based disc bulge, ligament flavum thickening and facet hypertrophy result in mild central canal stenosis. Mild bilateral neural foraminal narrowing. L2 4-L5: Adequate disc hydration. Broad-based disc bulge, ligament flavum thickening and facet hypert rophy result in mild central canal stenosis. Narrowing of the right subarticular zone with partial obscuration traversing right L5 nerve root. Right neural foramen is moderately narrowed. Patent left neural foramen. L5-S1: Adequate disc hydration. There is a broad-based disc bulge which encroaches upon both subicula r zones. There is contact upon both traversing S1 nerve roots without significant obscuration. Just inferior to the disc space, there is severe narrowing of the left and right subarticular zone predomi nantly due to bony hypertrophy of the S1 vertebral body secondary to osseous metastases. There is severe canal compromise just inferior to the L5-S1 disc space. Moderate bilateral neural foraminal na rrowing. IMPRESSION: 1. Extensive multifocal osseous metastases. There is obscuration of the left S1 and S2 neural foramen secondary to osseous metastases. There is presumed compromise upon the left S1 and S2 dermatome. Correlate clinically. 2. Severe central canal stenosis and obscuration of bilateral traversing S1 nerve root secondary to b elmer hypertrophy from metastases involving the S1 vertebral body. 3. Osseous metastases at T12, L1, L3 and L5 as described above. Results of the study conveyed to Dr. Goldsmith via [facility] 02/04/2020 at 11:19 AM Code CR Transcribed Date/Time: 02/04/2020 11:41 AM
[2020-02-04] MEDS ORDERED: Magnevist 469MG/ML 20 ML VIAL ONE ×2 (16:28)
== END 2020-02-04 09:00 | disposition home or self-care (01) ==
LOC: MRI 08:59
PROVIDERS: ATTEND Neurological Surgery
DX: C50.112 Malignant neoplasm of central portion of left female breast (principal); C79.51 Secondary malignant neoplasm of bone; R93.7 Abnormal findings on diagnostic imaging of other parts of musculoskeletal system; M54.16 Radiculopathy, lumbar region; M48.08 Spinal stenosis, sacral and sacrococcygeal region; M48.04 Spinal stenosis, thoracic region; G95.89 Other specified diseases of spinal cord
CPT/HCPCS: 72157; 72158; A9579

== ENCOUNTER 2020-02-06 06:45 | Outpatient (CLI) | payer BC, OTHER ==
[2020-02-07 14:54] LABS: SARS-CoV-2 MS2 Positive; SARS-CoV-2 N Gene Negative; SARS-CoV-2 S Gene Negative; SARS-CoV-2 by NAA Not Detected (NotDetected); SARS-CoV-2 orf1ab Negative
== END 2020-02-06 06:46 | disposition home or self-care (01) ==
LOC: LABBT 06:45
PROVIDERS: ATTEND Neurological Surgery
DX: C79.51 Secondary malignant neoplasm of bone (principal); C80.1 Malignant (primary) neoplasm, unspecified; Z20.828 Contact with and (suspected) exposure to other viral communicable diseases
CPT/HCPCS: 87635; U0003

== ENCOUNTER 2020-02-23 09:00 | Outpatient (CLI) | payer BC, OTHER ==
[2020-02-24 12:04] LABS: SARS-CoV-2 MS2 Positive; SARS-CoV-2 N Gene Negative; SARS-CoV-2 S Gene Negative; SARS-CoV-2 by NAA Not Detected (NotDetected); SARS-CoV-2 orf1ab Negative
== END 2020-02-23 09:01 | disposition home or self-care (01) ==
LOC: LABBT 09:00
PROVIDERS: ATTEND Neurological Surgery
DX: C79.51 Secondary malignant neoplasm of bone (principal); C80.1 Malignant (primary) neoplasm, unspecified; Z20.828 Contact with and (suspected) exposure to other viral communicable diseases
CPT/HCPCS: 87635; U0003

== ENCOUNTER 2020-03-22 12:27 | Outpatient (CLI) | payer BC | END 2020-03-22 12:28 | disposition home or self-care (01) | LOC: ULT 12:27 | PROVIDERS: ATTEND Internal Medicine Hematology & Oncology | DX: Z51.11 Encounter for antineoplastic chemotherapy (principal); C50.112 Malignant neoplasm of central portion of left female breast; C79.51 Secondary malignant neoplasm of bone; Z79.899 Other long term (current) drug therapy; I08.8 Other rheumatic multiple valve diseases | CPT/HCPCS: 93306 ==

== ENCOUNTER 2020-08-02 10:56 | Outpatient (CLI) | payer BC ==
[2020-08-02] MEDS ORDERED: Iopamidol 370 76% 50 ML VIAL FS ONE (14:12)
[2020-08-02] MEDS ORDERED: Iopamidol 370 76% 100 ML VIAL ONE (14:12)
== END 2020-08-02 10:57 | disposition home or self-care (01) ==
LOC: CT 10:56 → ULT 10:57
PROVIDERS: ATTEND Internal Medicine Hematology & Oncology
DX: C79.51 Secondary malignant neoplasm of bone (principal); C50.112 Malignant neoplasm of central portion of left female breast; D25.9 Leiomyoma of uterus, unspecified; I08.1 Rheumatic disorders of both mitral and tricuspid valves
CPT/HCPCS: 71260; 74177; 93306; Q9967

== ENCOUNTER 2020-10-01 09:56 | Outpatient (CLI) | payer BC ==
[2020-10-01] MEDS ORDERED: Iopamidol-370 76% 500 ML 1 ML ONE (12:35)
== END 2020-10-01 09:57 | disposition home or self-care (01) ==
LOC: BICCT 09:56
PROVIDERS: ATTEND Internal Medicine Hematology & Oncology
DX: C50.112 Malignant neoplasm of central portion of left female breast (principal); C79.51 Secondary malignant neoplasm of bone; K86.89 Other specified diseases of pancreas
CPT/HCPCS: 70470; 71260; 74177; Q9967